=== PATIENT | female | born 1955 | race Caucasian/White ===

== ENCOUNTER 2025-01-13 06:34 | Day surgery (SDC) | payer MEDICARE ==
[2025-01-08 10:51] VITALS: BMI 34.7
[2025-01-13] MEDS ORDERED: AFRIN NASAL MIST 15 ML BOT ONE ×2 (07:15→08:42)
[2025-01-13] MEDS ORDERED: Rocuronium Bromide 10 MG/ML (10ML VIAL) ONE (08:00)
[2025-01-13] MEDS ORDERED: PROPOFOL 20 ML ONE (08:00)
[2025-01-13] MEDS ORDERED: Lidocaine 1% PF 5 ML VIAL ONE (08:00)
[2025-01-13] MEDS ORDERED: Bacitracin 1 PK ONE (08:42)
[2025-01-13] MEDS ORDERED: Lidocaine 1% w/Epinephrine 1:200K 30 ML VIAL ONE (08:42)
[2025-01-13 08:58] LABS: Hematocrit 38.6 % (34.9-44.5); Hemoglobin 12.6 g/dL (12.0-15.5)
[2025-01-13] MEDS ORDERED: Oxymetazoline HCl 0.05% (15 ML) ONE (09:10)
[2025-01-13 09:11] LABS: Anion Gap 13 mmol/L (10-20); BUN (Urea Nitrogen) 23 mg/dL (9.8-20.1); Calc. Creatinine Clearance 98 mL/min (70-130); Calcium 9.2 mg/dL (7.8-10.44); Carbon Dioxide 24 mmol/L (23-31); Chloride 107 mmol/L (98-107); Glucose 109 mg/dL (80-115); Potassium 3.7 mmol/L (3.5-5.1); Sodium 140 mmol/L (136-145)
[2025-01-13] MEDS ORDERED: Ondansetron PF 4 MG/2 ML Vial ONE (09:17)
[2025-01-13] MEDS ORDERED: SUGAMMADEX SODIUM 200 MG/2 ML VIAL ONE (09:17)
[2025-01-13] MEDS ORDERED: HYDROmorphone 0.5 MG/0.5 ML SYRINGE ONE (09:57)
[2025-01-13] MEDS ORDERED: HYDROcodone/Acetaminophen 5/325 mg Tablet ONE (10:33)
== END 2025-01-13 11:00 | disposition home or self-care (01) ==
LOC: CSHSDC 06:34
PROVIDERS: ATTEND Otolaryngology Plastic Surgery within the Head & Neck
PROC: 09SM4ZZ Reposition Nasal Septum, Percutaneous Endoscopic Approach (ICD-10-PCS; principal; 2025-01-13)
PROC: 09TL8ZZ Resection of Nasal Turbinate, Via Natural or Artificial Opening Endoscopic (ICD-10-PCS; 2025-01-13)
DX: J34.2 Deviated nasal septum (principal); J34.3 Hypertrophy of nasal turbinates; J34.89 Other specified disorders of nose and nasal sinuses; J45.20 Mild intermittent asthma, uncomplicated; I10 Essential (primary) hypertension; K21.9 Gastro-esophageal reflux disease without esophagitis; Z88.6 Allergy status to analgesic agent; Z79.51 Long term (current) use of inhaled steroids; Z79.899 Other long term (current) drug therapy
CPT/HCPCS: 30520; 30140; 80048; 85014; 85018; 93005; J1100; J1171; J2405; J2704; J3010; 36415; 93010; J1010